=== PATIENT | female | born 1985 | race Two or more races ===

== ENCOUNTER 2022-10-29 09:05 | Observation (INO) | payer MEDICAID ==
[~2022-10-29] VITALS: Ht 157.5 cm; Wt 79.8 kg
[~2022-10-29 09:05] MED LIST: NIF10C PO; PREN-96 PO
== END 2022-10-29 12:06 | disposition home or self-care (01) ==
LOC: UNDOADMOB 10:55 → LDRP 10:55 → UNDODISOB 12:06
PROVIDERS: ADMIT Obstetrics & Gynecology; ATTEND Obstetrics & Gynecology
DX: O60.03 Preterm labor without delivery, third trimester (principal); Z3A.35 35 weeks gestation of pregnancy
CPT/HCPCS: 59025; 76818; 81002; 94760; G0378

== ENCOUNTER 2022-11-05 18:53 | Observation (INO) | payer MEDICAID ==
[~2022-11-05] VITALS: Ht 157.5 cm; Wt 79.8 kg
== END 2022-11-05 20:47 | disposition home or self-care (01) ==
LOC: LDRP 18:53
PROVIDERS: ADMIT Obstetrics & Gynecology; ATTEND Obstetrics & Gynecology
DX: O60.03 Preterm labor without delivery, third trimester (principal); O09.523 Supervision of elderly multigravida, third trimester; O62.9 Abnormality of forces of labor, unspecified; Z3A.36 36 weeks gestation of pregnancy
CPT/HCPCS: 59025; 76818; 81002; G0378

== ENCOUNTER 2022-11-12 19:01 | Observation (INO) | payer MEDICAID | END 2022-11-12 20:18 | disposition home or self-care (01) | LOC: LDRP 19:01 | PROVIDERS: ADMIT Obstetrics & Gynecology; ATTEND Obstetrics & Gynecology | DX: O09.523 Supervision of elderly multigravida, third trimester (principal); O99.891 Other specified diseases and conditions complicating pregnancy; M54.9 Dorsalgia, unspecified; Z3A.37 37 weeks gestation of pregnancy | CPT/HCPCS: 59025; 76818; 81002; G0378 ==

== ENCOUNTER 2022-11-26 19:10 | Observation (INO) | payer MEDICAID ==
[~2022-11-26] VITALS: Ht 157.5 cm; Wt 77.1 kg
== END 2022-11-26 20:55 | disposition home or self-care (01) ==
LOC: LDRP 19:10
PROVIDERS: ADMIT Obstetrics & Gynecology; ATTEND Obstetrics & Gynecology
DX: O36.8330 Maternal care for abnormalities of the fetal heart rate or rhythm, third trimester, not applicable or unspecified (principal); O09.523 Supervision of elderly multigravida, third trimester; O62.9 Abnormality of forces of labor, unspecified; Z3A.39 39 weeks gestation of pregnancy
CPT/HCPCS: 59025; 76818; 81002; G0378

== ENCOUNTER 2022-12-03 19:02 | Observation (INO) | payer MEDICAID ==
[~2022-12-03] VITALS: Ht 157.5 cm; Wt 79.8 kg
== END 2022-12-03 23:58 | disposition home or self-care (01) ==
LOC: LDRP 19:02
PROVIDERS: ADMIT Obstetrics & Gynecology; ATTEND Obstetrics & Gynecology
DX: O60.03 Preterm labor without delivery, third trimester (principal); O09.523 Supervision of elderly multigravida, third trimester; Z3A.40 40 weeks gestation of pregnancy
CPT/HCPCS: 59025; 76805; 81002; 94760; G0378; 76818

== ENCOUNTER 2022-12-05 13:08 | Inpatient (IN) | payer MEDICAID ==
[~2022-12-05] VITALS: Ht 157.5 cm; Wt 79.8 kg
[2022-12-05] MEDS ORDERED: PHISODERM TOP SOLN 240ML BTL TOP PRN (13:30)
[2022-12-05] MEDS ORDERED: PROMETHAZINE HCL 25 MG/ML 1ML IV PRN (13:30)
[2022-12-05] MEDS ORDERED: WITCH HAZEL-GLYCERIN PAD TOP PRN (13:30)
[2022-12-05] MEDS ORDERED: BUTORPHANOL TARTRATE 2 MG/1 ML VIAL IV PRN ×2 (13:30)
[2022-12-05] MEDS ORDERED: LIDOCAINE 2%HCL (LOCAL ANESTH.) INJ 20ML MDV IJ PRN (13:30)
[2022-12-05] MEDS ORDERED: DERMOPLAST 60ML BOTTLE TOP PRN (13:30)
[2022-12-05] MEDS ORDERED: LACT. RINGERS/OXYTOCIN 20UNITS 500 ML IV ONE ×2 (13:30→14:00)
[2022-12-05 14:02] LABS: Basophils # (auto) 0.1 10 ^3/uL (0-0.2); Basophils % (auto) 0.7 % (0.0-2.0); Eosinophils # (auto) 0.1 10 ^3/uL (0-0.8); Eosinophils % (auto) 0.6 % (0.0-7.0); Hematocrit 38.3 % (36.0-46.0); Lymphocytes # (auto) 1.5 10 ^3/uL (0.4-5.4); Lymphocytes % (auto) 16.6 % (10.0-50.0); Mean Corpuscular Hemoglobin 32.2 pg (28.0-32.0); Mean Corpuscular Volume 94.6 fL (80.0-100.0); Monocytes # (auto) 0.5 10 ^3/uL (0-1.3); Monocytes % (auto) 5.7 % (0.0-12.0); Neutrophils # (auto) 6.9 10 ^3/uL (1.6-8.6); Neutrophils % (auto) 76.4 % (37.0-80.0); Nucleated Red Blood Cells % 0.1 %; Red Blood Cells 4.05 10^6/uL (4.0-5.20); Red Cell Distribution Width 15.4 % (11.8-14.3); White Blood Cell 9.1 10^3/uL (4.4-10.8)
[2022-12-05 14:18] LABS: Alanine Aminotransferase 14 U/L (7-40); Albumin 3.8 g/dL (3.2-4.8); Alkaline Phosphatase 104 U/L (46-116); Anion Gap 8.2 (5-15); Aspartate Aminotransferase 13 U/L (13-40); BUN/Creatinine Ratio 13.8 (10.0-20.0); Blood Urea Nitrogen 8 mg/dL (9-23); Calcium 8.9 mg/dL (8.5-10.1); Carbon Dioxide 18.8 mmol/L (20-30); Chloride 107 mmol/L (98-107); Glucose 132 mg/dL (74-106); Potassium 3.8 mmol/L (3.5-5.1); Sodium 134 mmol/L (136-145); Total Protein 6.6 g/dL (5.7-8.2)
[2022-12-05 14:19] LABS: Bilirubin, Total 0.2 mg/dL (0.2-1.0); INR 0.98 (0.9-1.15); Partial Thromboplastin Time 25.9 SEC (24.5-34.5); Prothrombin Time 10.3 sec (9.3-11.8)
[2022-12-05] MEDS: LACTATED RINGER'S 1,000 ML IV SCH ×3 (15:17→23:47)
[2022-12-05] MEDS: miSOPROStol 50 MCG per PRE-CUT 1/2 TAB PO PRN ×2 (15:30→19:30)
[2022-12-05 16:44] LABS: Urine Bacteria FEW /hpf (None Seen); Urine Blood 1+ /uL (Negative); Urine Clarity HAZY (Clear); Urine Color Yellow (Yellow); Urine Mucus FEW (None Seen); Urine Protein, UAD 1+ (Negative); Urine Urobilinogen Normal (Negative); Urine WBC 17 /hpf (0 - 5)
[2022-12-05 17:06] LABS: Amphetamine Screen, Urine Neg (NEGATIVE); Barbiturate Scree,Urine Neg (NEGATIVE); Benzodiazephine Screen, Urine Neg (NEGATIVE); Cannabinoid Screen, Urine Neg (NEGATIVE); Cocaine Screen, Urine Neg (NEGATIVE); Opiate Scree,Urine Neg (NEGATIVE); Phencyclidine Screen, Urine Neg (NEGATIVE)
[2022-12-05] MEDS ORDERED: METHYLERGONOVINE MALEATE 0.2 MG/ML AMP IM PRN (23:45)
[2022-12-05] MEDS ORDERED: miSOPROStol 100 mcg TAB PR PRN (23:45)
[2022-12-05] MEDS ORDERED: miSOPROStol 100 mcg TAB SL PRN (23:45)
[2022-12-06] MEDS ORDERED: fentaNYL CITRATE 100 MCG/2 ML VL IV ONE (01:30)
[2022-12-06] MEDS ORDERED: ONDANSETRON ODT 4 MG TAB PO PRN (04:45)
[2022-12-06] MEDS ORDERED: ACETAMINOPHEN 325 MG TAB PO PRN (04:45)
[2022-12-06] MEDS: IBUPROFEN 600 MG TAB PO PRN ×3 (04:52→23:24)
[2022-12-06 19:00] VITALS: BP 124/83; PULSE 73; RESP 20; TEMP 98; O2SAT 96
[2022-12-06] MEDS ORDERED: DOCUSATE SOD 100 MG CAP PO SCH (22:00)
[2022-12-06 23:00] VITALS: BP 124/83; PULSE 82; RESP 18; TEMP 97.6; O2SAT 98
[2022-12-07 02:45] VITALS: BP 104/71; PULSE 67; RESP 18; TEMP 97.8; O2SAT 98
[2022-12-07 07:00] VITALS: BP 127/77; PULSE 65; RESP 20; TEMP 97.9; O2SAT 97
[2022-12-07] MEDS: IBUPROFEN 600 MG TAB PO PRN (08:16)
[2022-12-07 10:53] VITALS: BP 99/61; PULSE 85; RESP 18; TEMP 97.9; O2SAT 96
[2022-12-07 15:00] VITALS: BP 128/62; PULSE 85; RESP 18; TEMP 98; O2SAT 98
[2022-12-07 23:06] LABS: Chlamydia Trachomatis, NAA Negative (Negative); Neisseria gonorrhoeae, NAA Negative (Negative)
[2022-12-08 03:07] LABS: Rubella Antibodies, IgG 1.02 index (Immune >0.99)
[2022-12-08 05:07] LABS: RPR Non Reactive (Non Reactive)
[2022-12-08 21:06] LABS: Treponema pallidum Ab (FTA-Ab) Non Reactive (Non Reactive)
== END 2022-12-07 15:00 | disposition home or self-care (01) | DRG 560 ==
LOC: LDRP 13:08
PROVIDERS: ADMIT Obstetrics & Gynecology; ATTEND Obstetrics & Gynecology
PROC: 10E0XZZ Delivery of Products of Conception, External Approach (ICD-10-PCS; principal; 2022-12-06)
DX: O48.0 Post-term pregnancy (principal); Z37.0 Single live birth; O99.344 Other mental disorders complicating childbirth; F32.A Depression, unspecified; Z3A.40 40 weeks gestation of pregnancy
CPT/HCPCS: 36415; 59025; 59409; 80053; 80307; 81001; 81002; 83036; 85025; 85610; 85730; 86592; 86703; 86762; 86850; 86900; 86901; 87340; 94760; 94762; 96360; 96361; 96365; 96366; G0378; J2590